=== PATIENT | male | born 1990 | race Caucasian/White ===

== ENCOUNTER 2020-03-02 21:45 | Emergency (ER) | payer OTHER ==
[2020-03-02 21:55] VITALS: RESP 18; TEMP 98.8
[2020-03-02] MEDS ORDERED: HYDROcodone/APAP 10-325MG 1 EACH TAB PO ONE (22:23)
--- NOTE | 2020-03-02 22:26 | ED ---
Lower Extremity Injury HPI - General Chief Complaint: Extremity Injury, Lower Stated Complaint: Leg injury Time Seen by Provider: 03/02/20 22:16 Source: patient, EMS Mode of arrival: EMS Limitations: no limitations - History of Present Illness Initial Comments: This patient is a 29-year-old man who presents to have evaluation of left lower leg injury. The patient states that his fiance had prepared a meal that he was very happy about so he jumped up to do a celebratory kick and fell on his left leg. The patient experienced pain to the medial aspect of the pretibial area. He had severe pain with attempting to bear weight so they phoned EMS who placed him in a splint and transported him here. At my history and physical, patient refuses injection medication and requests to try oral analgesics first. MD Complaint: leg injury Onset/Timin -: hour(s) Injury: Leg: Left Type of Injury: blunt Place: home Severity: severe Improves With: nothing Worsens With: weight bearing Context: fall Associated Symptoms: snap/pop sensation Treatments Prior to Arrival: splint - Related Data Previous Rx's Medication Instructions Recorded HYDROcodone/APAP 10-325MG [[place] 1 tab PO Q4HR PRN 3 Days #18 tab 03/03/20 10-325] Ibuprofen 800 mg PO TID #20 tablet 03/03/20 Allergies Allergy/AdvReac Type Severity Reaction Status Date / Time shellfish derived [Shellfish] Allergy Swelling Verified 03/02/20 23:41 Review of Systems ROS Statement: Those systems with pertinent positive or pertinent negative responses have been documented in the HPI. ROS Other: All systems not noted in ROS Statement are negative. Constitutional: Denies: fever, chills Respiratory: Denies: cough, dyspnea Cardiovascular: Denies: chest pain, palpitations, syncope Gastrointestinal: Denies: abdominal pain Musculoskeletal: Reports: as per HPI. Denies: back pain Skin: Denies: rash Neurological: Denies: weakness, numbness, paresthesias Hematological/Lymphatic: Denies: easy bleeding Past Medical History Past Psychological History: Anxiety Smoking Status: Current every day smoker Past Alcohol Use History: Occasional Past Drug Use History: Marijuana General Exam Limitations: no limitations General appearance: alert, in no apparent distress Head exam: Present: atraumatic, normocephalic Neck exam: Present: normal inspection, full ROM Respiratory exam: Present: normal lung sounds bilaterally. Absent: respiratory distress, wheezes, rales, rhonchi, stridor Cardiovascular Exam: Present: regular rate, normal rhythm, normal heart sounds, other (Left dorsalis pedis pulse normal in strength and normal capillary refill). Absent: systolic murmur, diastolic murmur, rubs, gallop GI/Abdominal exam: Present: soft. Absent: tenderness Extremities exam: Present: tenderness (Left tibia) Neurological exam: Present: alert. Absent: motor sensory deficit Skin exam: Present: warm, dry, intact, normal color. Absent: rash Course Vital Signs 03/02/20 21:48 Temperature 98.8 F Pulse Rate 76 Respiratory 18 Rate Blood Pressure 124/79 O2 Sat by Pulse 99 Oximetry Procedures - Orthopedic Splinting/Casting Injury #1 Side: left Lower Extremity Injury Location: short leg Lower Extremity Immobilizer: posterior splint Other Orthopedic Equipment: crutches Disposition Clinical Impression: Fracture of tibia, Fracture of fibula Disposition: HOME SELF-CARE Condition: Good Instructions (If sedation given, give patient instructions): Leg Fracture (ED) Prescriptions: Ibuprofen 800 mg PO TID #20 tablet HYDROcodone/APAP 10-325MG [[place] 10-325] 1 tab PO Q4HR PRN 3 Days #18 tab PRN Reason: Pain Is patient prescribed a controlled substance at d/c from ED?: Yes When asked, does pt state using other controlled substances?: No If prescribed controlled substance>3 days was MAPS reviewed?: Prescribed <3 Days If opioid is for acute pain is fill amount 7 days or less?: Yes If Rx opioid, was Start Talking consent form obtained?: Yes Referrals: None,Stated [Primary Care Provider] - 1-2 days Cayden Wellington MD [STAFF PHYSICIAN] - 1-2 days
--- NOTE | 2020-03-02 22:48 | XR ---
EXAMINATION TYPE: XR tibia fibula LT DATE OF EXAM: 03/02/2020 COMPARISON: NONE HISTORY: Pain TECHNIQUE: 4 views FINDINGS: There is a spiral fracture of the distal shaft of the tibia. There is no significant displa cement. There is also spiral fracture proximal shaft of the fibula. The knee joint is anatomic. Ankle mortise is anatomic. IMPRESSION: Spiral fractures of the distal shaft of the tibia and proximal shaft of the fibula.
[2020-03-02] MEDS ORDERED: HYDROmorphone 1 MG/ML 1 ML SYRINGE IVP STA (23:23)
[2020-03-03] MEDS ORDERED: HYDROmorphone 1 MG/ML 1 ML SYRINGE IM STA (00:24)
[2020-03-03] MEDS ORDERED: IBUPROFEN 600 MG STARTER PACK 4 TAB BTL PO STA (00:24)
[2020-03-03 00:39] VITALS: BP 109/85; PULSE 88
== END 2020-03-03 00:40 | disposition home or self-care (01) ==
LOC: EC 21:45
DX: S82.442A Displaced spiral fracture of shaft of left fibula, initial encounter for closed fracture (principal); S82.312A Torus fracture of lower end of left tibia, initial encounter for closed fracture; F17.200 Nicotine dependence, unspecified, uncomplicated; Z91.013 Allergy to seafood; W18.39XA Other fall on same level, initial encounter; Y93.39 Activity, other involving climbing, rappelling and jumping off; Y92.009 Unspecified place in unspecified non-institutional (private) residence as the place of occurrence of the external cause
CPT/HCPCS: 73590; 96374; 96372; 99284; 29515; J1170